=== PATIENT | female | born 1965 | race Caucasian/White ===

== ENCOUNTER → 2019-01-14 | Outpatient (CLI) | payer OTHER ==
[2019-01-14 11:33] LABS: ABSOLUTE EOSINOPHILS 0.2 thou/uL (0.0-0.7); ABSOLUTE LYMPHOCYTES 2.5 thou/uL (0.8-5.3); ABSOLUTE MONOCYTES 0.4 thou/uL (0.0-1.2); ABSOLUTE NEUTROPHILS 7.8 thou/uL (1.6-8.1); BASOPHILS 0.2 %; EOSINOPHILS 1.7 %; HEMATOCRIT 39.1 % (37.0-47.0); HEMOGLOBIN 12.8 gm/dL (12.0-15.0); LYMPHOCYTES 23.3 %; MCH 27.1 pg (26.0-34.0); MCHC 32.7 g/dL (28.0-37.0); MCV 82.8 fL (80.0-100.0); MONOCYTES 3.6 %; MPV 8.5 fl. (7.2-11.1); NUCLEATED RBCS 0 /100WBC; PLATELET COUNT* 374 thou/uL (150-400); POLYS 71.2 %; RBC 4.72 mil/uL (4.20-5.00); RDW-CV 14.2 % (10.5-14.5); WBC 10.9 thou/uL (4.0-11.0)
[2019-01-14 11:46] LABS: ALBUMIN 3.6 g/dL (3.4-5.0); ALKALINE PHOSPHATASE 172 U/L (46-116); ANION GAP 11 mmol/L (7-16); BUN 14 mg/dL (7-18); CALCIUM 9.6 mg/dL (8.5-10.1); CHLORIDE 102 mmol/L (98-107); CHOLESTEROL 271 mg/dL (<200); CO2 27 mmol/L (21-32); CREATININE 0.8 mg/dL (0.6-1.3); GLUCOSE 160 mg/dL (70-99); HDL CHOLESTEROL 54 mg/dL (>40); LDL CHOLESTEROL 162 mg/dL (<100); POTASSIUM 3.9 mmol/L (3.5-5.1); SGOT 14 U/L (15-37); SGPT 26 U/L (30-65); SODIUM 140 mmol/L (136-145); TOTAL BILIRUBIN 0.3 mg/dL (<0.1-1.0); TRIGLYCERIDE 279 mg/dL (<150); VLDL 56 mg/dL (<40)
[2019-01-14 11:50] LABS: SERUM ASSESSMENT Clear
[2019-01-14 22:06] LABS: GLYCOHEMOGLOBIN (HGB A1C) 8.3 % (4.8-5.6)
== END ==
LOC: M.LAB 11:12
PROVIDERS: Family Medicine
DX: R42 Dizziness and giddiness (principal); E11.9 Type 2 diabetes mellitus without complications

== ENCOUNTER → 2020-02-06 | Outpatient (CLI) | payer OTHER ==
[2020-02-06 10:26] LABS: ABSOLUTE BASOPHILS 0.1 thou/uL (0.0-0.2); ABSOLUTE EOSINOPHILS 0.1 thou/uL (0.0-0.7); ABSOLUTE LYMPHOCYTES 2.7 thou/uL (0.8-5.3); ABSOLUTE MONOCYTES 0.5 thou/uL (0.0-1.2); ABSOLUTE NEUTROPHILS 8.7 thou/uL (1.6-8.1); BASOPHILS 0.7 %; EOSINOPHILS 1.2 %; HEMATOCRIT 35.2 % (37.0-47.0); HEMOGLOBIN 11.6 gm/dL (12.0-15.0); LYMPHOCYTES 22.1 %; MCHC 32.9 g/dL (28.0-37.0); MCV 85.2 fL (80.0-100.0); MONOCYTES 4.1 %; MPV 8.5 fl. (7.2-11.1); NUCLEATED RBCS 0 /100WBC; PLATELET COUNT* 319 thou/uL (150-400); POLYS 71.9 %; RBC 4.13 mil/uL (4.20-5.00); RDW-CV 14.2 % (10.5-14.5); WBC 12.1 thou/uL (4.0-11.0)
[2020-02-06 11:02] LABS: ALBUMIN 3.6 g/dL (3.4-5.0); CALCIUM 8.7 mg/dL (8.5-10.1); CREATININE 0.8 mg/dL (0.6-1.3); POTASSIUM 4.1 mmol/L (3.5-5.1); TOTAL BILIRUBIN 0.3 mg/dL (<0.1-1.0); TOTAL PROTEIN 7.6 g/dL (6.4-8.2); URIC ACID* 6.7 mg/dL (2.6-7.2)
[2020-02-06 11:35] LABS: ESR (SEDRATE) 30 mm/hr (0-30)
[2020-02-07 02:07] LABS: GLYCOHEMOGLOBIN (HGB A1C) 7.4 % (4.8-5.6)
== END ==
LOC: M.LAB 10:06
PROVIDERS: Family Medicine
DX: E11.9 Type 2 diabetes mellitus without complications (principal); M79.671 Pain in right foot

== ENCOUNTER 2020-07-12 18:50 | Emergency (ER) | payer OTHER ==
[~2020-07-12] VITALS: Ht 157.5 cm; Wt 90.7 kg
[2020-07-12] MEDS ORDERED: VICTOZA0.6 MG/0.1 SUBQ (18:58)
[2020-07-12] MEDS ORDERED: COZAAR 25 MG TA25 M1 PO (18:59)
[2020-07-12] MEDS ORDERED: VITAMIN D31250 MC1 PO (18:59)
[2020-07-12] MEDS ORDERED: METFORMIN HCL500 M3 PO (18:59)
[2020-07-12 19:26] LABS: ABSOLUTE BASOPHILS 0.1 thou/uL (0.0-0.2); ABSOLUTE EOSINOPHILS 0.6 thou/uL (0.0-0.7); ABSOLUTE LYMPHOCYTES 2.6 thou/uL (0.8-5.3); ABSOLUTE MONOCYTES 0.4 thou/uL (0.0-1.2); ABSOLUTE NEUTROPHILS 12.3 thou/uL (1.6-8.1); BASOPHILS 0.9 %; EOSINOPHILS 3.6 %; HEMATOCRIT 37.3 % (37.0-47.0); HEMOGLOBIN 12.4 gm/dL (12.0-15.0); LYMPHOCYTES 16.1 %; MCH 28.3 pg (26.0-34.0); MCHC 33.1 g/dL (28.0-37.0); MCV 85.4 fL (80.0-100.0); MONOCYTES 2.7 %; MPV 8.6 fl. (7.2-11.1); NUCLEATED RBCS 0 /100WBC; PLATELET COUNT* 344 thou/uL (150-400); POLYS 76.7 %; RBC 4.37 mil/uL (4.20-5.00); RDW-CV 13.5 % (10.5-14.5)
[2020-07-12 19:33] LABS: CREATININE 1.2 mg/dL (0.6-1.3); POTASSIUM 3.8 mmol/L (3.5-5.1)
[2020-07-12 19:37] LABS: ALBUMIN 3.8 g/dL (3.4-5.0); TOTAL BILIRUBIN 0.3 mg/dL (<0.1-1.0); TOTAL PROTEIN 7.7 g/dL (6.4-8.2)
[2020-07-12 19:59] LABS: URINE BILIRUBIN NEGATIVE (Negative); URINE BLOOD 3+ (Negative); URINE CLARITY CLOUDY; URINE COLOR YELLOW; URINE GLUCOSE-RANDOM NEGATIVE (Negative); URINE KETONES TRACE (Negative); URINE LEUKOCYTES-REFLEX TRACE (Negative); URINE NITRITE-REFLEX NEGATIVE (Negative); URINE PROTEIN 1+ (Negative); URINE SPECIFIC GRAVITY >= 1.030 (1.005-1.030); URINE UROBILINOGEN 0.2 E.U./dl (0.2-1.0)
[2020-07-12] MEDS ORDERED: CIPROFLOXACIN500 M1 PO (20:00)
[2020-07-12] MEDS ORDERED: NORCO 5-325 TA1 EAC2 PO (20:00)
[2020-07-12 20:04] LABS: SQUAMOUS >10 Many /LPF (0-3)
[2020-07-12 20:05] LABS: BACTERIA-REFLEX >30 Many /HPF (None Seen); CASTS None Seen /LPF (None Seen); MUCUS 0-3 Light strn/LPF (None Seen); URINE RBC >20 Many /HPF (0-2); URINE WBC-REFLEX 6-15 Few /HPF (0-5)
[2020-07-12] MEDS ORDERED: FLOMAX0.4 MG PO (20:09)
[2020-07-12 20:10] VITALS: BP 144/82
[2020-07-12 20:14] LABS: URIC ACID CRYSTALS 4-10 Moderate /LPF (None Seen)
--- NOTE | 2020-07-13 13:45 | EKG ---
[place] [address] ELECTROCARDIOGRAM REPORT Name: GARRETT CHOWDHURY Amanda Room: [facility]#: [id number] Admission: 07/12/20 Attend Phys: Discharge: 07/12/20 Date of : 63 Date of Service: 07/12/20 185 Report #: [id number] THIS REPORT FOR: //name// [facility] ED Test Date: 2020-07-12 Test Time: 18:59:46 Pat Name: GARRETT CHOWDHURY Department: Room: Gender: F Senior Lead Project Manager: ASHLY : 1965 Requested By: Kervin Dill Order Number: [id number] Reading MD: Kip Mcgrath Measurements Intervals [place] Rate: 91 P: VT: QRS: 2 QRSD: 80 T: -2 QT: 360 QTc: 443 Interpretive Statements sinus rhythm poor r wave progression Low voltage, precordial leads Borderline T abnormalities, inferior leads Baseline wander in lead(s) II,III,aVF No previous ECG available for comparison Electronically Signed On 07-13-2020 13:45:38 CDT by Kip Mcgrath [email or web address] <ELECTRONICALLY SIGNED> By: Kip Mcgrath MD, FACC 07/13/20 1345 1859 1859 Kip Mcgrath MD, [facility] /EPI
== END 2020-07-12 20:10 | disposition home or self-care (01) ==
LOC: M.ERS 18:50
PROVIDERS: Family Medicine
DX: N20.0 Calculus of kidney (principal); I10 Essential (primary) hypertension; E11.9 Type 2 diabetes mellitus without complications; Z90.710 Acquired absence of both cervix and uterus; Z87.442 Personal history of urinary calculi

== ENCOUNTER 2021-07-24 03:40 | Emergency (ER) | payer OTHER ==
[~2021-07-24] VITALS: Ht 157.5 cm; Wt 83.5 kg
[~2021-07-24 03:40] MED LIST: CIPROFLOXACIN500 M1 PO; COZAAR 25 MG TA25 M1 PO; FLOMAX0.4 MG PO; METFORMIN HCL500 M3 PO; NORCO 5-325 TA1 EAC2 PO; VICTOZA0.6 MG/0.1 SUBQ; VITAMIN D31250 MC1 PO
[2021-07-24 04:48] LABS: URINE BILIRUBIN NEGATIVE (Negative); URINE BLOOD NEGATIVE (Negative); URINE CLARITY CLEAR; URINE COLOR YELLOW; URINE GLUCOSE-RANDOM 2+ (Negative); URINE KETONES NEGATIVE (Negative); URINE LEUKOCYTES-REFLEX NEGATIVE (Negative); URINE NITRITE-REFLEX NEGATIVE (Negative); URINE PROTEIN NEGATIVE (Negative); URINE UROBILINOGEN 0.2 E.U./dl (0.2-1.0)
[2021-07-24 05:40] LABS: ABSOLUTE BASOPHILS 0.1 thou/uL (0.0-0.2); ABSOLUTE EOSINOPHILS 0.2 thou/uL (0.0-0.7); ABSOLUTE LYMPHOCYTES 1.8 thou/uL (0.8-5.3); ABSOLUTE MONOCYTES 0.6 thou/uL (0.0-1.2); ABSOLUTE NEUTROPHILS 9.2 thou/uL (1.6-8.1); BASOPHILS 0.6 %; EOSINOPHILS 1.5 %; HEMATOCRIT 33.8 % (37.0-47.0); HEMOGLOBIN 11.2 gm/dL (12.0-15.0); LYMPHOCYTES 15.2 %; MCH 27.9 pg (26.0-34.0); MCV 84.5 fL (80.0-100.0); MONOCYTES 5.3 %; MPV 8.7 fl. (7.2-11.1); NUCLEATED RBCS 0 /100WBC; PLATELET COUNT* 304 thou/uL (150-400); POLYS 77.4 %; RDW-CV 13.7 % (10.5-14.5); WBC 11.8 thou/uL (4.0-11.0)
[2021-07-24 06:05] LABS: CALCIUM 9.2 mg/dL (8.5-10.1); CREATININE 1.2 mg/dL (0.6-1.3); POTASSIUM 4.3 mmol/L (3.5-5.1)
[2021-07-24 06:10] LABS: ALBUMIN 3.3 g/dL (3.4-5.0); TOTAL BILIRUBIN 0.2 mg/dL (<0.1-1.0); TOTAL PROTEIN 7.3 g/dL (6.4-8.2)
[2021-07-24] MEDS ORDERED: CEPHALEXIN500 MG PO (08:03)
[2021-07-24] MEDS ORDERED: ZOFRAN ODT4 MG DISSOLVE (08:03)
[2021-07-24] MEDS ORDERED: HYDROCODON-ACE1 EAC7 PO (08:03)
[2021-07-24 08:15] VITALS: BP 163/76
== END 2021-07-24 08:15 | disposition home or self-care (01) ==
LOC: M.ERS 03:40
PROVIDERS: Personal Emergency Response Attendant
DX: E11.65 Type 2 diabetes mellitus with hyperglycemia (principal); R10.12 Left upper quadrant pain; I10 Essential (primary) hypertension; Z90.710 Acquired absence of both cervix and uterus

== ENCOUNTER 2021-10-28 18:35 | Inpatient (IN) | payer OTHER ==
[~2021-10-28] VITALS: Ht 157.5 cm; Wt 83.5 kg
[~2021-10-28 18:35] MED LIST changes: +CEPHALEXIN500 MG PO; +HYDROCODON-ACE1 EAC7 PO; +ZOFRAN ODT4 MG DISSOLVE
[2021-10-28 19:07] VITALS: BP 199/103
[2021-10-28] MEDS ORDERED: LISINOPRIL20 MG PO (19:10)
[2021-10-28] MEDS ORDERED: LANTUS SUBQ (19:10)
[2021-10-28] MEDS ORDERED: TRULICITY0.75 MG/0. SUBQ (19:11)
[2021-10-28 19:37] LABS: URINE BILIRUBIN NEGATIVE (Negative); URINE BLOOD TRACE (Negative); URINE COLOR YELLOW; URINE GLUCOSE-RANDOM 3+ (Negative); URINE KETONES TRACE (Negative); URINE LEUKOCYTES 2+ (Negative); URINE NITRITE NEGATIVE (Negative); URINE PROTEIN NEGATIVE (Negative); URINE SPECIFIC GRAVITY 1.025 (1.005-1.030); URINE UROBILINOGEN 0.2 E.U./dl (0.2-1.0)
[2021-10-28 19:38] LABS: URINE CLARITY CLOUDY
[2021-10-28 19:45] LABS: SQUAMOUS >10 Many /LPF (0-3)
[2021-10-28 19:46] LABS: BACTERIA None Seen /HPF (None Seen); CASTS None Seen /LPF (None Seen); CRYSTALS None Seen /LPF (None Seen); URINE RBC None Seen /HPF (0-2)
[2021-10-28 20:16] LABS: ABSOLUTE BASOPHILS 0.2 thou/uL (0.0-0.2); ABSOLUTE EOSINOPHILS 0.6 thou/uL (0.0-0.7); ABSOLUTE LYMPHOCYTES 2.5 thou/uL (0.8-5.3); ABSOLUTE MONOCYTES 0.9 thou/uL (0.0-1.2); BASOPHILS 1.2 %; HEMOGLOBIN 11.2 gm/dL (12.0-15.0); LYMPHOCYTES 15.2 %; MCH 27.4 pg (26.0-34.0); MCHC 32.9 g/dL (28.0-37.0); MCV 83.5 fL (80.0-100.0); MONOCYTES 5.3 %; MPV 8.4 fl. (7.2-11.1); NUCLEATED RBCS 0 /100WBC; PLATELET COUNT* 318 thou/uL (150-400); POLYS 74.3 %; RBC 4.07 mil/uL (4.20-5.00); RDW-CV 13.6 % (10.5-14.5); WBC 16.2 thou/uL (4.0-11.0)
[2021-10-28 20:38] LABS: CALCIUM 9.5 mg/dL (8.5-10.1); CREATININE 1.4 mg/dL (0.6-1.3); POTASSIUM 4.7 mmol/L (3.5-5.1)
[2021-10-28 20:43] LABS: ALBUMIN 3.4 g/dL (3.4-5.0); TOTAL BILIRUBIN 0.2 mg/dL (<0.1-1.0); TOTAL PROTEIN 7.2 g/dL (6.4-8.2)
[2021-10-29 01:30] VITALS: BP 150/84
[2021-10-29 05:35] VITALS: BP 159/79
[2021-10-29 11:41] VITALS: BP 152/81
--- NOTE | 2021-10-29 12:32 | NUR ---
THE PATIENT REPORTS THAT SHE HAS A SCHEDULED APPOINTMENT FOR SURGERY WITH DR. YAÑEZ ON 11-11-21 WITH [facility]. YULY CARTER, WHO IS WATCH REPAIR TECHNICIAN TO DR. YAÑEZ STATES SHE WILL SEE THE PATIENT TODAY AT THIS FACILITY, UNKNOWN TIME. A CONSULT HAS BEEN PUT IN FOR UROLOGY, CURRENTLY AWAITING FOR THAT CALL.
[2021-10-29] MEDS ORDERED: HYDROCODON-ACE1 EAC7 PO (13:53)
[2021-10-29] MEDS ORDERED: CIPROFLOXACIN500 M1 PO (13:53)
[2021-10-29 16:05] VITALS: BP 152/81
[2021-10-29 16:36] VITALS: BP 152/81
== END 2021-10-29 16:30 | disposition home or self-care (01) | DRG 690 ==
LOC: M.ERS 18:35 → M.TBA-ER 21:37
PROVIDERS: Student in an Organized Health Care Education/Training Program; ADMIT Internal Medicine; ATTEND Internal Medicine
DX: N13.6 Pyonephrosis (principal); N17.9 Acute kidney failure, unspecified; E11.9 Type 2 diabetes mellitus without complications; I10 Essential (primary) hypertension; J30.2 Other seasonal allergic rhinitis; Z20.822 Contact with and (suspected) exposure to COVID-19; Z90.710 Acquired absence of both cervix and uterus